=== PATIENT | male | born 1960 | race Caucasian/White ===

== ENCOUNTER 2024-05-16 12:01 | Emergency (ER) | payer MEDICARE ==
[2024-05-16 12:12] VITALS: BP 175/110
[2024-05-16] MEDS ORDERED: Diph, Acellular Pertussis, Tet 0.5 ML/VIAL (Tdap) SDV IM ONE (12:30)
[2024-05-16] MEDS ORDERED: SILVER SULFADIAZINE 50 GM/TUBE EA TOP ONE (12:35)
[2024-05-16] MEDS ORDERED: SILVADENE1 % EX (12:45)
== END 2024-05-16 12:55 | disposition home or self-care (01) ==
LOC: ED 12:01
PROC: 2W2RX4Z Dressing of Left Lower Leg using Bandage (ICD-10-PCS; principal; 2024-05-16)
DX: T24.202A Burn of second degree of unspecified site of left lower limb, except ankle and foot, initial encounter (principal); T31.0 Burns involving less than 10% of body surface; X04.XXXA Exposure to ignition of highly flammable material, initial encounter; Y92.009 Unspecified place in unspecified non-institutional (private) residence as the place of occurrence of the external cause